=== PATIENT | female | born 1995 ===

== ENCOUNTER 2017-10-18 19:03 | Emergency (ER) | payer OTHER ==
[2017-10-18 19:03] VITALS: BMI 23.5
[2017-10-18 19:14] VITALS: BP 103/71; PULSE 72; RESP 16; TEMP 98; O2SAT 98
--- NOTE | 2017-10-18 19:25 | C.PDOC ---
History Of Present Illness 22 year old female patient presents to the ER with c/o dysuria, urinary frequency, right and left flank pain. Patient reports left flank side pain started this morning. Associated symptom includes nausea. Patient denies vomiting, fever, chills. Patient notes she is currently on her menstrual cycle. Time Seen by Provider: 10/18/17 19:16 Chief Complaint (Nursing): Back Pain History Per: Patient History/Exam Limitations: no limitations Onset/Duration Of Symptoms: Days Current Symptoms Are (Timing): Still Present Past Medical History Reviewed: Historical Data, Nursing Documentation, Vital Signs Vital Signs: Last Vital Signs Temp 98 F 10/18/17 19:10 Pulse 72 10/18/17 19:10 Resp 16 10/18/17 19:10 BP 103/71 10/18/17 19:10 Pulse Ox 98 10/18/17 19:56 Family History: States: Unknown Family Hx - Social History Hx Alcohol Use: No Hx Substance Use: No - Immunization History Hx Tetanus Toxoid Vaccination: No Hx Influenza Vaccination: No Hx Pneumococcal Vaccination: No Review Of Systems Constitutional: Negative for: Fever, Chills Gastrointestinal: Positive for: Nausea. Negative for: Vomiting Genitourinary: Positive for: Dysuria, Frequency Musculoskeletal: Positive for: Other (left and right-sided flank pain) Physical Exam - Physical Exam Appears: Non-toxic, No Acute Distress Skin: Warm, Dry, No Rash Head: Atraumatic, Normacephalic Oral Mucosa: Moist Neck: Supple Chest: No Tenderness Cardiovascular: Rhythm Regular, No Murmur Respiratory: Normal Breath Sounds, No Rales, No Rhonchi, No Wheezing Gastrointestinal/Abdominal: Bowel Sounds (normoactive ), Soft, Tenderness (mild suprapubic tenderness), No Distention, No Guarding, No Rebound Back: CVA Tenderness (mild b/l CVA tend.) Extremity: Normal ROM (x4) Neurological/Psych: Oriented x3, Normal Speech, Normal Cognition, No Other ( gross focal deficits) ED Course And Treatment O2 Sat by Pulse Oximetry: 98 (RA) Pulse Ox Interpretation: Normal Medical Decision Making Medical Decision Making: Impression: Dysuria, urinary frequency, right and left sided flank pain associated with nausea Differential diagnosis: possible UTI , early pyleonephritis Plans: -- Tylenol -- UCx -- Urine test -- UA Reassess: pt not , with nausea, bilateral mild flank pain, afebrile- early pyelonephritis, will tx with cipro Patient is resting comfortably, abdomen remains soft, and patient is tolerating PO. Patient advised to f/u with OBGYN or pmd in 1-2 days. Disposition Counseled Patient/Family Regarding: Studies Performed, Diagnosis, Need For Followup, Rx Given - Disposition Referrals: [facility] [Outside] [facility] [Outside] Disposition: HOME/ ROUTINE Disposition Time: 19:49 Condition: GOOD Additional Instructions: Por favor, tome antibiticos hasta que se complete. Rina mayor cantidad de l quidos diariamente, el agua y el jugo de arndano son buenos. Nat un seguimiento con hernandez mdico o gineclogo en unos carvajal. Regrese a la nida de emergencias por fiebre, vmitos, dolor o cualquier otra preocupacin. Please take antibiotics until completed. Drink increased fluids daily- water and cranberry juice are good. Follow up with your medical doctor or ornament stitcher in a few days. Return to ER for fever, vomiting, worse pain or any other concerns. Prescriptions: Ciprofloxacin [Cipro] 500 mg PO BID #13 tab Instructions: Urinary Tract Infection, Adult (DC) Forms: Gen Discharge Inst Slovenian, [email or web address] (Slovenian) Print Language: IRISH - Clinical Impression Clinical Impression: UTI (urinary tract infection) - PA / DIRECTOR CORPORATE COMPLIANCE / Resident Statement / has reviewed & agrees with the documentation as recorded. - Scribe Statement The provider has reviewed the documentation as recorded by the Edvin Morejon Do All medical record entries made by the Edvin were at my direction and personally dictated by me. I have reviewed the chart and agree that the record accurately reflects my personal performance of the history, physical exam, medical decision making, and the department course for this patient. I have also personally directed, reviewed, and agree with the discharge instructions and disposition.
[2017-10-18 19:37] LABS: URINE BACTERIA MOD (<OCC); URINE BILIRUBIN NEGATIVE (NEGATIVE); URINE BLOOD 2+ (NEGATIVE); URINE CLARITY Clear (Clear); URINE COLOR Straw (YELLOW); URINE GLUCOSE (UA) NORMAL (Normal); URINE LEUKOCYTE ESTERASE 1+ Leu/uL (Negative); URINE PROTEIN NEGATIVE (NEGATIVE); URINE UROBILINOGEN NORMAL mg/dL (0.2-1.0)
== END 2017-10-18 19:54 | disposition home or self-care (01) ==
LOC: C.ER 19:03
DX: N39.0 Urinary tract infection, site not specified (principal)